=== PATIENT | male | born 1965 | race Caucasian/White ===

== ENCOUNTER 2018-03-12 08:03 | Day surgery (SDC) | payer OTHER ==
[2018-03-08 12:31] VITALS: BMI 25.4
[2018-03-12] MEDS ORDERED: PROPOFOL 20 ML ONE ×2 (08:20)
[2018-03-12] MEDS ORDERED: GLYCOPYRROLATE 0.2 MG/1 ML VIAL ONE (10:18)
[2018-03-12 10:40] VITALS: PULSE 65; TEMP 97.6
[2018-03-12 11:11] VITALS: BP 130/86
--- NOTE | 2018-03-13 11:17 | PATH ---
Surgical Pathology Report Patient Name: MAJO SMITH [facility]. Rec. #: [id number] /Age/Gender: 1965 (Age: 52) / M Account: [id number] Location: [facility]-ENDOSCOPY Taken: 03/12/2018 Received: 03/12/2018 Reported: 03/13/2018 Physicians: Pipe Maier M.D. Specimen(s) Received BX SIGMOID Clinical History rule out colitis, sigmoid inflammation Final Diagnosis SIGMOID, BIOPSY: COLONIC MUCOSA WITH FOCAL RECENT HEMORRHAGE IN THE LAMINA PROPRIA AND SMALL REACTIVE LYMPHOID AGGREGATES. Electronically Signed Patricia Orr M.D. Gross Description Received in formalin, labeled "sigmoid" is a huntley, irregular portion of soft tissue measuring 0.3 cm. in greatest dimension. The specimen is submitted in toto in one cassette. NIKIA/03/12/2018 louie/03/12/2018
== END 2018-03-12 11:07 | disposition home or self-care (01) ==
LOC: FASU-ENDO 08:03
PROVIDERS: ATTEND Internal Medicine Gastroenterology
PROC: 0DBN8ZX Excision of Sigmoid Colon, Via Natural or Artificial Opening Endoscopic, Diagnostic (ICD-10-PCS; principal; 2018-03-12 10:18)
DX: Z12.11 Encounter for screening for malignant neoplasm of colon (principal); K57.30 Diverticulosis of large intestine without perforation or abscess without bleeding; K63.89 Other specified diseases of intestine
CPT/HCPCS: 88305-TC